=== PATIENT | male | born 1945 | race Asian ===

== ENCOUNTER 2018-03-09 07:37 | Emergency (ER) | payer MEDICARE, OTHER ==
[~2018-03-09] VITALS: Ht 172.7 cm; Wt 72.0 kg
[2018-03-09 08:12] LABS: GLUCOSE,POINT OF CARE 149 MG/DL (70-110)
[2018-03-09] MEDS ORDERED: OS500 PO (08:17)
[2018-03-09] MEDS ORDERED: LATA2.5D15 OU (08:17)
[2018-03-09] MEDS ORDERED: GLIP5 PO (08:17)
[2018-03-09] MEDS ORDERED: APIX5TAB PO (08:17)
[2018-03-09] MEDS ORDERED: ATOR40TA28 PO (08:17)
[2018-03-09] MEDS ORDERED: DORZ10DR13 OU (08:17)
[2018-03-09] MEDS ORDERED: CARV3 PO (08:17)
[2018-03-09] MEDS ORDERED: TAMS0.4C32 PO (08:17)
[2018-03-09] MEDS ORDERED: FOSI20 PO (08:17)
[2018-03-09] MEDS ORDERED: CHOL400C8 PO (08:17)
[2018-03-09 10:06] VITALS: BP 163/78
== END 2018-03-09 11:18 | disposition home or self-care (01) ==
LOC: EMS 07:39
DX: S00.83XA Contusion of other part of head, initial encounter (principal); M47.892 Other spondylosis, cervical region; I48.91 Unspecified atrial fibrillation; E11.9 Type 2 diabetes mellitus without complications; E78.00 Pure hypercholesterolemia, unspecified; W05.0XXA Fall from non-moving wheelchair, initial encounter; Y93.89 Activity, other specified; Y92.89 Other specified places as the place of occurrence of the external cause; Y99.8 Other external cause status
CPT/HCPCS: 70450; 72125; 82962; 99284